=== PATIENT | male | born 1955 | race Caucasian/White ===

== ENCOUNTER 2021-08-29 21:34 | Inpatient (IN) | payer MEDICARE ==
[~2021-08-29] VITALS: Ht 175.3 cm; Wt 57.3 kg
[~2021-08-29 21:34] MED LIST: AMLO1TAB24 PO; BUPR8SUB SL; COMMENTS; DIPH50IN14 IM; GABA-282 PO; HALO5INJ12 IM; QUET50TA4 PO; WARF-23 PO; [UNRECOGNIZED DRUG - CODE] IM
[2021-08-30] VITALS (13 sets, daily range): BP systolic 114–162; BP diastolic 46–92
[2021-08-30] MEDS ORDERED: PHYTONADIONE INJection 5 MG in NS 50 ML IV ONE (02:00)
[2021-08-30 02:14] LABS: HEMATOCRIT 20.9 % (42.0-52.0)
[2021-08-30 02:18] LABS: HEMOGLOBIN 6.7 g/dl (13.5-17.5)
[2021-08-30] MEDS ORDERED: hydrOXYzine 25 MG TAB PO ONE (05:15)
[2021-08-30] MEDS: NICOTINE 14 MG/24 HR TRANSDERMAL TD PRN (05:17)
[2021-08-30] MEDS: ACETAMINOPHEN TAB 650MG DOSE (2X325MG) PO PRN ×2 (05:19→09:38)
[2021-08-30] MEDS ORDERED: BUPRENORPHINE HCL 8MG SUBINGUAL TABLET SL ONE (06:30)
[2021-08-30] MEDS ORDERED: LORA-674 PO (06:31)
[2021-08-30] MEDS ORDERED: FOLI1TAB11 PO (06:31)
[2021-08-30] MEDS ORDERED: CARV3.12 PO (06:31)
[2021-08-30] MEDS ORDERED: DICL1GEL3 TOP (06:31)
[2021-08-30] MEDS ORDERED: OMEP-221 PO (06:31)
[2021-08-30] MEDS ORDERED: WARF-58 PO (06:31)
[2021-08-30] MEDS ORDERED: RAMI1CAP22 PO (06:31)
[2021-08-30] MEDS ORDERED: PARO40TA3 PO (06:31)
[2021-08-30] MEDS ORDERED: HOME MED LIST COMPLETE! XX SCH ×2 (06:35→19:40)
[2021-08-30 10:14] LABS: INR 1.4; PROTHROMBIN TIME 17.5 SECONDS (12.7-14.5)
[2021-08-30 13:32] LABS: BASO % 0.4 % (0.0-1.0); EOS # 0.1 10^3/uL (0.0-0.5); EOS % 0.6 % (0.0-3.0); HEMATOCRIT 26.3 % (42.0-52.0); HEMATOCRIT 26.6 % (42.0-52.0); HEMOGLOBIN 8.7 g/dl (13.5-17.5); LYMPH # 1.5 10^3/uL (1.5-5.0); LYMPH % 14.7 % (24.0-44.0); MEAN CORPUSCULAR HEMOGLOBIN 27.4 pg (27.0-33.0); MEAN CORPUSCULAR HGB CONC 32.7 g/dl (32.0-36.5); MEAN CORPUSCULAR VOLUME 83.9 fl (80.0-96.0); MONO # 1.3 10^3/uL (0.0-0.8); MONO % 13.1 % (2.0-8.0); NEUTROPHILS % 70.7 % (36.0-66.0); PLATELET COUNT, AUTOMATED 259 10^3/uL (150-450); RED BLOOD COUNT 3.17 10^6/uL (4.30-6.10); WHITE BLOOD COUNT 9.9 10^3/uL (4.0-10.0)
[2021-08-30 13:35] LABS: HEMOGLOBIN 8.8 g/dl (13.5-17.5)
[2021-08-30 14:04] LABS: ALBUMIN 2.8 GM/DL (3.2-5.2); ALT/SGPT 32 U/L (12-78); BILIRUBIN,TOTAL 1.7 MG/DL (0.2-1.0); BLOOD UREA NITROGEN 28 MG/DL (7-18); CALCIUM LEVEL 8.2 MG/DL (8.8-10.2); CARBON DIOXIDE LEVEL 24 MEQ/L (21-32); CHLORIDE LEVEL 108 MEQ/L (98-107); CREATININE FOR GFR 0.76 MG/DL (0.70-1.30); GLOMERULAR FILTRATION RATE > 60.0 (>49); GLUCOSE, FASTING 88 MG/DL (70-100); MAGNESIUM LEVEL 2.6 MG/DL (1.8-2.4); POTASSIUM SERUM 4.4 MEQ/L (3.5-5.1); SODIUM LEVEL 139 MEQ/L (136-145); TOTAL PROTEIN 6.1 GM/DL (6.4-8.2)
[2021-08-30] MEDS ORDERED: DICLOFENAC EPOLAMINE 1.3 % PATCH TOP PRN (16:45)
[2021-08-30] MEDS ORDERED: BUPR8SUB SL (19:39)
[2021-08-30] MEDS ORDERED: PILL CUTTER 1 EACH XX PRN (20:05)
[2021-08-30] MEDS: PARoxetine 20MG TABLET PO SCH (20:41)
[2021-08-30] MEDS: BUPRENORPHINE HCL 8MG SUBINGUAL TABLET SL SCH (20:41)
[2021-08-30] MEDS: ramipriL 1.25 MG CAP PO SCH (20:41)
[2021-08-30] MEDS: FOLIC ACID 1 MG TAB PO SCH (20:41)
[2021-08-30] MEDS: LORATADINE 10 MG TAB PO SCH (20:42)
[2021-08-30] MEDS: GABAPENTIN 300 MG CAP PO SCH (20:42)
[2021-08-30] MEDS: CARVedilol 3.125 MG TAB PO SCH (20:42)
[2021-08-30] MEDS: QUEtiapine FUMARATE 50MG TAB PO SCH (20:42)
[2021-08-30] MEDS: OMEPRAZOLE 20 MG CAP PO SCH (20:42)
[2021-08-31 05:23] VITALS: BP 107/47
[2021-08-31 06:15] LABS: HEMATOCRIT 27.3 % (42.0-52.0); HEMOGLOBIN 8.8 g/dl (13.5-17.5); MEAN CORPUSCULAR HEMOGLOBIN 27.4 pg (27.0-33.0); MEAN CORPUSCULAR HGB CONC 32.2 g/dl (32.0-36.5); PLATELET COUNT, AUTOMATED 274 10^3/uL (150-450); RED BLOOD COUNT 3.21 10^6/uL (4.30-6.10)
[2021-08-31] MEDS: BUPRENORPHINE HCL 8MG SUBINGUAL TABLET SL SCH ×5 (06:21→20:39)
[2021-08-31 06:38] LABS: INR 1.16; PROTHROMBIN TIME 15.2 SECONDS (12.7-14.5)
[2021-08-31 06:43] LABS: BLOOD UREA NITROGEN 21 MG/DL (7-18); CALCIUM LEVEL 8.3 MG/DL (8.8-10.2); CARBON DIOXIDE LEVEL 27 MEQ/L (21-32); CHLORIDE LEVEL 108 MEQ/L (98-107); GLOMERULAR FILTRATION RATE > 60.0 (>49); GLUCOSE, FASTING 88 MG/DL (70-100); POTASSIUM SERUM 4.3 MEQ/L (3.5-5.1); SODIUM LEVEL 140 MEQ/L (136-145)
[2021-08-31] MEDS: ACETAMINOPHEN TAB 650MG DOSE (2X325MG) PO PRN (08:23)
[2021-08-31] MEDS: GABAPENTIN 300 MG CAP PO SCH ×3 (08:23→20:37)
[2021-08-31] MEDS: CARVedilol 3.125 MG TAB PO SCH ×2 (08:24→20:38)
[2021-08-31] MEDS: NICOTINE 14 MG/24 HR TRANSDERMAL TD PRN (08:25)
[2021-08-31 14:00] VITALS: BP 97/57
[2021-08-31 20:00] VITALS: BP 131/64
[2021-08-31] MEDS: WARFARIN SOD 3MG TAB PO SCH (20:37)
[2021-08-31] MEDS: PARoxetine 20MG TABLET PO SCH (20:37)
[2021-08-31] MEDS: QUEtiapine FUMARATE 50MG TAB PO SCH (20:37)
[2021-08-31] MEDS: FOLIC ACID 1 MG TAB PO SCH (20:38)
[2021-08-31] MEDS: ramipriL 1.25 MG CAP PO SCH (20:38)
[2021-08-31] MEDS: LORATADINE 10 MG TAB PO SCH (20:39)
[2021-08-31] MEDS: OMEPRAZOLE 20 MG CAP PO SCH (20:39)
[2021-09-01] MEDS: ACETAMINOPHEN TAB 650MG DOSE (2X325MG) PO PRN (03:59)
[2021-09-01 06:00] VITALS: BP 106/88
[2021-09-01] MEDS: BUPRENORPHINE HCL 8MG SUBINGUAL TABLET SL SCH ×5 (06:00→19:58)
[2021-09-01 07:38] LABS: BASO % 0.3 % (0.0-1.0); EOS # 0.3 10^3/uL (0.0-0.5); EOS % 2.4 % (0.0-3.0); HEMOGLOBIN 8.6 g/dl (13.5-17.5); LYMPH # 1.5 10^3/uL (1.5-5.0); LYMPH % 13.1 % (24.0-44.0); MEAN CORPUSCULAR HEMOGLOBIN 27.4 pg (27.0-33.0); MEAN CORPUSCULAR HGB CONC 31.9 g/dl (32.0-36.5); MONO # 0.9 10^3/uL (0.0-0.8); MONO % 8.1 % (2.0-8.0); NEUTROPHILS # 8.4 10^3/uL (1.5-8.5); NEUTROPHILS % 75.8 % (36.0-66.0); PLATELET COUNT, AUTOMATED 271 10^3/uL (150-450); RED BLOOD COUNT 3.14 10^6/uL (4.30-6.10)
[2021-09-01 08:04] LABS: INR 1.21; PROTHROMBIN TIME 15.7 SECONDS (12.7-14.5)
[2021-09-01 08:05] LABS: ALBUMIN 2.6 GM/DL (3.2-5.2); ALT/SGPT 25 U/L (12-78); BILIRUBIN,TOTAL 0.9 MG/DL (0.2-1.0); BLOOD UREA NITROGEN 20 MG/DL (7-18); CALCIUM LEVEL 8.3 MG/DL (8.8-10.2); CARBON DIOXIDE LEVEL 27 MEQ/L (21-32); CHLORIDE LEVEL 107 MEQ/L (98-107); CREATININE FOR GFR 0.69 MG/DL (0.70-1.30); GLOMERULAR FILTRATION RATE > 60.0 (>49); GLUCOSE, FASTING 110 MG/DL (70-100); POTASSIUM SERUM 4.5 MEQ/L (3.5-5.1); SODIUM LEVEL 139 MEQ/L (136-145); TOTAL PROTEIN 5.7 GM/DL (6.4-8.2)
[2021-09-01] MEDS: CARVedilol 3.125 MG TAB PO SCH ×2 (09:00→19:58)
[2021-09-01] MEDS: GABAPENTIN 300 MG CAP PO SCH ×3 (09:19→19:57)
[2021-09-01 14:00] VITALS: BP 110/52
[2021-09-01] MEDS: OMEPRAZOLE 20 MG CAP PO SCH (19:55)
[2021-09-01] MEDS: FOLIC ACID 1 MG TAB PO SCH (19:56)
[2021-09-01] MEDS: PARoxetine 20MG TABLET PO SCH (19:56)
[2021-09-01] MEDS: ramipriL 1.25 MG CAP PO SCH (19:56)
[2021-09-01] MEDS: WARFARIN SOD 3MG TAB PO SCH (19:57)
[2021-09-01] MEDS: QUEtiapine FUMARATE 50MG TAB PO SCH (19:58)
[2021-09-01] MEDS: LORATADINE 10 MG TAB PO SCH (19:58)
[2021-09-01 22:00] VITALS: BP 111/46
[2021-09-02] MEDS: BUPRENORPHINE HCL 8MG SUBINGUAL TABLET SL SCH ×5 (05:05→20:25)
[2021-09-02 06:00] VITALS: BP 110/52
[2021-09-02 07:05] LABS: HEMATOCRIT 28.9 % (42.0-52.0); HEMOGLOBIN 9.1 g/dl (13.5-17.5); MEAN CORPUSCULAR HEMOGLOBIN 27.7 pg (27.0-33.0); MEAN CORPUSCULAR HGB CONC 31.5 g/dl (32.0-36.5); MEAN CORPUSCULAR VOLUME 87.8 fl (80.0-96.0); PLATELET COUNT, AUTOMATED 286 10^3/uL (150-450); RED BLOOD COUNT 3.29 10^6/uL (4.30-6.10)
[2021-09-02 07:15] LABS: INR 1.22; PROTHROMBIN TIME 15.9 SECONDS (12.7-14.5)
[2021-09-02 07:32] LABS: BLOOD UREA NITROGEN 16 MG/DL (7-18); CALCIUM LEVEL 8.4 MG/DL (8.8-10.2); CARBON DIOXIDE LEVEL 29 MEQ/L (21-32); CHLORIDE LEVEL 108 MEQ/L (98-107); CREATININE FOR GFR 0.66 MG/DL (0.70-1.30); GLOMERULAR FILTRATION RATE > 60.0 (>49); GLUCOSE, FASTING 87 MG/DL (70-100); MAGNESIUM LEVEL 2.2 MG/DL (1.8-2.4); POTASSIUM SERUM 4.8 MEQ/L (3.5-5.1); SODIUM LEVEL 140 MEQ/L (136-145)
[2021-09-02] MEDS: CARVedilol 3.125 MG TAB PO SCH ×2 (09:00→20:29)
[2021-09-02] MEDS: GABAPENTIN 300 MG CAP PO SCH ×3 (09:07→20:24)
[2021-09-02 14:00] VITALS: BP 102/61
[2021-09-02] MEDS ORDERED: WARFARIN SOD 3MG TAB PO SCH (17:00)
[2021-09-02] MEDS ORDERED: WARFARIN SOD 2MG TAB PO ONE (17:00)
[2021-09-02] MEDS: FOLIC ACID 1 MG TAB PO SCH (20:24)
[2021-09-02] MEDS: LORATADINE 10 MG TAB PO SCH (20:24)
[2021-09-02] MEDS: OMEPRAZOLE 20 MG CAP PO SCH (20:24)
[2021-09-02] MEDS: QUEtiapine FUMARATE 50MG TAB PO SCH (20:24)
[2021-09-02] MEDS: PARoxetine 20MG TABLET PO SCH (20:25)
[2021-09-02] MEDS: ramipriL 1.25 MG CAP PO SCH (20:28)
[2021-09-03] MEDS: BUPRENORPHINE HCL 8MG SUBINGUAL TABLET SL SCH ×2 (05:44→09:10)
[2021-09-03 05:45] LABS: HEMATOCRIT 29.1 % (42.0-52.0); HEMOGLOBIN 9.2 g/dl (13.5-17.5); MEAN CORPUSCULAR HEMOGLOBIN 27.6 pg (27.0-33.0); MEAN CORPUSCULAR HGB CONC 31.6 g/dl (32.0-36.5); MEAN CORPUSCULAR VOLUME 87.4 fl (80.0-96.0); PLATELET COUNT, AUTOMATED 305 10^3/uL (150-450); RED BLOOD COUNT 3.33 10^6/uL (4.30-6.10); WHITE BLOOD COUNT 6.6 10^3/uL (4.0-10.0)
[2021-09-03 05:56] LABS: INR 1.39; PROTHROMBIN TIME 17.4 SECONDS (12.7-14.5)
[2021-09-03 06:00] VITALS: BP 117/61
[2021-09-03 06:16] LABS: BLOOD UREA NITROGEN 17 MG/DL (7-18); CALCIUM LEVEL 8.5 MG/DL (8.8-10.2); CARBON DIOXIDE LEVEL 27 MEQ/L (21-32); CHLORIDE LEVEL 106 MEQ/L (98-107); CREATININE FOR GFR 0.65 MG/DL (0.70-1.30); GLOMERULAR FILTRATION RATE > 60.0 (>49); GLUCOSE, FASTING 82 MG/DL (70-100); MAGNESIUM LEVEL 2.1 MG/DL (1.8-2.4); POTASSIUM SERUM 4.5 MEQ/L (3.5-5.1); SODIUM LEVEL 138 MEQ/L (136-145)
[2021-09-03 09:00] VITALS: BP 114/59
[2021-09-03] MEDS: CARVedilol 3.125 MG TAB PO SCH (09:00)
[2021-09-03] MEDS: GABAPENTIN 300 MG CAP PO SCH (09:09)
== END 2021-09-03 11:40 | disposition home health service (06) | DRG 813 ==
LOC: M MS5PR 08-30 00:40
PROVIDERS: ADMIT Internal Medicine; ATTEND Family Medicine
PROC: 30233N1 Transfusion of Nonautologous Red Blood Cells into Peripheral Vein, Percutaneous Approach (ICD-10-PCS; principal; 2021-08-30)
DX: D68.32 Hemorrhagic disorder due to extrinsic circulating anticoagulants (principal); R64 Cachexia; F11.20 Opioid dependence, uncomplicated; D62 Acute posthemorrhagic anemia; I10 Essential (primary) hypertension; E78.5 Hyperlipidemia, unspecified; J44.9 Chronic obstructive pulmonary disease, unspecified; M79.81 Nontraumatic hematoma of soft tissue; F41.9 Anxiety disorder, unspecified; G89.29 Other chronic pain; G47.00 Insomnia, unspecified; F17.210 Nicotine dependence, cigarettes, uncomplicated; M41.9 Scoliosis, unspecified; Z95.2 Presence of prosthetic heart valve; Z79.01 Long term (current) use of anticoagulants; Z79.899 Other long term (current) drug therapy